=== PATIENT | male | born 1990 ===

== ENCOUNTER 2020-07-30 18:42 | Observation (INO) | payer OTHER ==
[~2020-07-30] VITALS: Ht 190.5 cm; Wt 101.6 kg
[2020-07-30] MEDS ORDERED: MAALOX/HYOSCYAMINE/LIDOCAINE 45 ML BTL PO ONE (19:30)
[2020-07-30] MEDS ORDERED: MAALOX/HYOSCYAMINE/LIDOCAINE 45 ML BTL ONE (19:35)
[2020-07-30 19:38] LABS: BASOPHILS % (AUTO) 1 % (0-1); EOSINOPHILS % (AUTO) 3 % (1-7); LYMPHOCYTES % (AUTO) 17 % (22-44); MEAN CORPUSCULAR HEMOGLOBIN 32.7 pg (27.5-34.5); MEAN CORPUSCULAR HGB CONC 35.3 g/dL (33.2-36.2); MEAN PLATELET VOLUME 7.7 fL (7.4-10.4); MONOCYTES % (AUTO) 8 % (2-9); NEUTROPHILS % (AUTO) 72 % (42-75); PLATELET COUNT 302 x10^3/uL (130-400); RED CELL DISTRIBUTION WIDTH 13.1 % (9.4-14.8)
--- NOTE | 2020-07-30 19:38 | NUR ---
PRODUCT DEVELOPMENT TECHNICIAN PER MAR
[2020-07-30 19:39] LABS: MD NO
[2020-07-30 19:48] LABS: ALANINE AMINOTRANSFERASE 27 U/L (12-78); ALBUMIN 3.9 g/dL (3.4-5.0); ANION GAP 4 mmol/L (5-15); CALCIUM 8.9 mg/dL (8.5-10.1); CHLORIDE 105 mmol/L (98-107); CREATININE 1.12 mg/dL (0.7-1.3)
[2020-07-30 19:50] LABS: ALKALINE PHOSPHATASE 44 U/L (45-117); BILIRUBIN,TOTAL 0.7 mg/dL (0.2-1.0); TOTAL PROTEIN 7.7 g/dL (6.4-8.2)
--- NOTE | 2020-07-30 20:08 | NUR ---
RECEIVED N/O FOR CT.
--- NOTE | 2020-07-30 20:40 | NUR ---
PT BACK FROM CT. PT STATES ABD PAIN IS BETTER ON LEFT SIDE AND A LITTLE BETTER ON RIGHT SIDE.
--- NOTE | 2020-07-30 20:50 | NUR ---
ALL RESULTS ARE BACK AT THIS TIME. CHART UP FOR RECHECK.
--- NOTE | 2020-07-30 21:21 | NUR ---
ERMD AT BEDSIDE TO UPDATE PT ON POC. N/O RECEIVED FOR US.
--- NOTE | 2020-07-30 21:44 | NUR ---
PT GOING TO US.
--- NOTE | 2020-07-30 22:45 | NUR ---
MED REQUESTED FROM PHARMACY.
--- NOTE | 2020-07-30 22:51 | NUR ---
RAPID COVID SWAB COLLECTED AND TAKEN TO LAB. PT STATES DOES NOT WANT PAIN MEDS OR ZOFRAN AT THIS TIME. PT AWARE MEDS ARE AVAILABLE IF HE CHANGES HIS MIND.
[2020-07-30] MEDS ORDERED: MORPHINE SULFATE 4 MG/ML, 1ML IVPush PRN (23:00)
[2020-07-30] MEDS ORDERED: CEFOTETAN PMX 1GM/50ML 50 ML IVPB ONE (23:00)
[2020-07-30] MEDS ORDERED: ONDANSETRON 2MG/ML, 2ML IVPush PRN (23:00)
[2020-07-30] MEDS ORDERED: SODIUM CHLORIDE 0.9% 1,000 ML IV ONE (23:00)
--- NOTE | 2020-07-30 23:06 | NUR ---
IVF AND IV ABX STARTED PER MAR. REPORT GIVEN TO ANNA.
--- NOTE | 2020-07-30 23:09 | NUR ---
RECEIVED REPORT ON PT, TO BE ADMITTED. PT A&OX4, NO ACUTE DISTRESS. AWAITING ROOM TO BE MOVED UPSTAIRS.
--- NOTE | 2020-07-30 23:52 | NUR ---
PT TRANSFERRED TO FLOOR VIA GURNEY AND ON CR MONITOR, AND IN NO DISTRESS, AND IV INTACT.
[2020-07-30 23:54] VITALS: BP 116/72
[2020-07-31] MEDS ORDERED: OXYcodone IR 5MG TABLET PO PRN
[2020-07-31] MEDS ORDERED: CEFTRIAXONE 1,000 MG in DEXTROSE 5% 50 ML IV SCH
[2020-07-31] MEDS ORDERED: D5%-0.45% NACL 1,000 ML IV SCH
[2020-07-31 00:05] VITALS: BP 116/72
[2020-07-31] MEDS: ACETAMINOPHEN 325 MG TABLET PO PRN ×2 (00:30→12:00)
[2020-07-31] MEDS ORDERED: INDOCYANINE GREEN 25 MG VIAL ONE (00:36)
[2020-07-31 00:59] VITALS: BP 116/72
[2020-07-31] MEDS: METRONIDAZOLE PMX 500MG/100ML 100 ML IV SCH ×2 (01:51→10:00)
[2020-07-31] MEDS ORDERED: INDOCYANINE GREEN 25 MG VIAL IV ONE (06:00)
[2020-07-31 07:07] VITALS: BP 106/69
[2020-07-31] MEDS ORDERED: FENTANYL PF 250 MCG/5ML ONE (09:11)
[2020-07-31] MEDS ORDERED: MIDAZOLAM 1 MG/ML, 2ML ONE (09:11)
[2020-07-31] MEDS ORDERED: PROMETHAZINE 25 MG/ML, 1ML IVPush PRN (10:00)
[2020-07-31] MEDS ORDERED: DIPHENHYDRAMINE 50 MG/ML, 1ML IVPush PRN (10:00)
[2020-07-31] MEDS ORDERED: MEPERIDINE/PF 25MG/0.5ML IVPush PRN (10:00)
[2020-07-31] MEDS ORDERED: LABETALOL 5MG/ML, 20ML IV PRN (10:00)
[2020-07-31] MEDS ORDERED: OXYcodone 5 MG/5 ML ORAL.SOL UDC PO PRN (10:00)
[2020-07-31] MEDS ORDERED: HYDROmorphone 1 MG/ML, 1ML INJ IVPush PRN (10:00)
[2020-07-31] MEDS ORDERED: hydrALAzine 20 MG/ML, 1ML IV PRN (10:00)
[2020-07-31] MEDS ORDERED: HALOPERIDOL 5 MG/ML IV PRN (10:00)
[2020-07-31] MEDS ORDERED: BUPIVACAINE/PF 0.5% ONE (10:11)
[2020-07-31] MEDS ORDERED: EPINEPHRINE 1 MG/ML, 1ML ONE (10:11)
[2020-07-31] MEDS ORDERED: PROPOFOL 10 MG/ML, 20ML ONE (11:14)
[2020-07-31] MEDS ORDERED: NEOSTIGMINE 1 MG/ML, 10ML ONE (11:14)
[2020-07-31] MEDS ORDERED: GLYCOPYRROLATE 0.2MG/1ML, 5ML ONE (11:14)
[2020-07-31] MEDS ORDERED: ROCURONIUM 10MG/ML,5ML ONE (11:14)
[2020-07-31] MEDS ORDERED: ONDANSETRON 2MG/ML, 2ML ONE ×2 (11:14→12:09)
[2020-07-31] MEDS ORDERED: CEFAZOLIN 1,000 MG ONE (11:14)
[2020-07-31] MEDS ORDERED: SUCCINYLCHOLINE 20 MG/ML, 10ML ONE (11:14)
[2020-07-31] MEDS ORDERED: CEFOTETAN 1 GM ONE ×2 (11:15)
[2020-07-31] MEDS ORDERED: OXYC5TAB2 PO (11:42)
[2020-07-31] MEDS ORDERED: FENTANYL PF 100 MCG/2ML ONE (11:45)
[2020-07-31] MEDS ORDERED: ACETAMINOPHEN 650 MG/20.3 ML UDC ONE (11:46)
[2020-07-31] MEDS: FENTANYL PF 100 MCG/2ML IV PRN ×3 (11:50→12:10)
[2020-07-31] MEDS ORDERED: OXYcodone 5 MG/5 ML ORAL.SOL UDC ONE (12:18)
[2020-07-31 13:44] VITALS: BP 114/71
== END 2020-07-31 16:30 | disposition home or self-care (01) ==
LOC: ED 19:48 → INTOOBSV 22:50 → EDIP 22:50 → 4NE 23:50 → DCLOUNGE 07-31 16:17
PROVIDERS: ADMIT Surgery; ATTEND Surgery
DX: K80.12 Calculus of gallbladder with acute and chronic cholecystitis without obstruction (principal); Z20.822 Contact with and (suspected) exposure to COVID-19; K57.32 Diverticulitis of large intestine without perforation or abscess without bleeding; F17.200 Nicotine dependence, unspecified, uncomplicated; Z90.49 Acquired absence of other specified parts of digestive tract; Z79.899 Other long term (current) drug therapy
CPT/HCPCS: 36415; 47562; 74176; 76700; 80053; 83690; 85025; 87635; 88304; 96365; 96367; 96375; 99285; G0378; J0171; J0330; J0696; J2250; J2405; J2704; J2710; J3010; J7030; S0020; J0690